=== PATIENT | male | born 1970 | race African-American/Black ===

== ENCOUNTER 2019-09-17 18:55 | Emergency (ER) | payer SELFPAY ==
--- NOTE | 2019-09-17 19:38 | ER Document Report ---
ED Medical Screen (RME) - General Chief Complaint: Hand Pain Stated Complaint: HAND PAIN, LEG CRAMPS Time Seen by Provider: 09/17/19 19:36 Mode of Arrival: Ambulatory Information source: Patient Notes: 49-year-old male presents to ED for complaint of cramps to the ribs calves and hands. He states now he started to cramp all over. He is alert oriented respirations regular nonlabored speaking in full sentences. States he does smoke 4 cigarettes a day does not drink alcohol but does occasionally use marijuana. He states he does have a history of COPD. I have greeted and performed a rapid initial assessment of this patient. A comprehensive ED assessment and evaluation of the patient, analysis of test results and completion of medical decision making process will be conducted by an additional ED providers. - Related Data Allergies/Adverse Reactions: No Known Allergies Allergy (Unverified 09/17/19 19:02) Home Medications: "steroids". Albuterol. Chantix. Pepcid. flomax Past Medical History - Social History Chew tobacco use (# tins/day): No Frequency of alcohol use: None Drug Abuse: None Pulmonary Medical History: Reports: Hx COPD Physical Exam - Vital signs Vitals: Temp Pulse Resp BP Pulse Ox 98.8 F 111 H 18 136/94 H 95 09/17/19 19:00 09/17/19 19:00 09/17/19 19:00 09/17/19 19:00 09/17/19 19:00 Course - Vital Signs Vital signs: Temp Pulse Resp BP Pulse Ox 98.8 F 111 H 18 136/94 H 95 09/17/19 19:00 09/17/19 19:00 09/17/19 19:00 09/17/19 19:00 09/17/19 19:00
[2019-09-17 20:12] LABS: ABSOLUTE BASOPHILS # (AUTO) 0.1 10^3/uL (0.0-0.2); ABSOLUTE EOSINOPHILS # (AUTO) 0.2 10^3/uL (0.0-0.6); ABSOLUTE LYMPHOCYTES (AUTO) 2.3 10^3/uL (0.5-4.7); ABSOLUTE MONOCYTES (AUTO) 0.7 10^3/uL (0.1-1.4); BASOPHILS % (AUTO) 0.9 % (0-2); EOSINOPHILS % (AUTO) 1.5 % (0-6); HEMATOCRIT 45.5 % (37.9-51.0); HEMOGLOBIN 15.3 g/dL (13.5-17.0); LYMPHOCYTES % (AUTO) 18.7 % (13-45); MEAN CORPUSCULAR HEMOGLOBIN 30.6 pg (27.0-33.4); MEAN CORPUSCULAR HGB CONC 33.6 g/dL (32.0-36.0); MEAN CORPUSCULAR VOLUME 91 fl (80-97); MONOCYTES % (AUTO) 5.8 % (3-13); PLATELET COUNT 220 10^3/uL (150-450); RED CELL DISTRIBUTION WIDTH 14.1 % (11.5-14.0); SEGMENTED NEUTROPHILS % (AUTO) 73.1 % (42-78); TOTAL CELLS COUNTED % (AUTO) 100 %; WHITE BLOOD COUNT 12.3 10^3/uL (4.0-10.5)
[2019-09-17 20:20] LABS: APPEARANCE,URINE CLEAR; BILIRUBIN,URINE NEGATIVE (NEGATIVE); COLOR,URINE STRAW; GLUCOSE, URINE >=500 mg/dL (NEGATIVE); KETONES,URINE NEGATIVE (NEGATIVE); LEUKOCYTE ESTERASE,URINE NEGATIVE (NEGATIVE); NITRITE,URINE NEGATIVE (NEGATIVE); PROTEIN,URINE NEGATIVE (NEGATIVE); URINE SPECIFIC GRAVITY 1.024; UROBILINOGEN,URINE NEGATIVE mg/dL (<2.0)
[2019-09-17 20:28] LABS: ALBUMIN 4.8 g/dL (3.5-5.0); ALKALINE PHOSPHATASE 69 U/L (38-126); ANION GAP 9 (5-19); ASPARTATE AMINO TRANSFERASE 29 U/L (17-59); BILIRUBIN,TOTAL 0.6 mg/dL (0.2-1.3); BLOOD UREA NITROGEN 21 mg/dL (7-20); CALCIUM 10.7 mg/dL (8.4-10.2); CARBON DIOXIDE 30 mmol/L (22-30); CHLORIDE 96 mmol/L (98-107); CREATINE KINASE 400 U/L (55-170); GLUCOSE 312 mg/dL (75-110); PHOSPHORUS 4.7 mg/dL (2.5-4.5); POTASSIUM 5.8 mmol/L (3.6-5.0); TOTAL PROTEIN 7.6 g/dL (6.3-8.2)
[2019-09-17 20:34] LABS: URINE AMPHETAMINES SCREEN NEGATIVE; URINE BARBITURATES SCREEN NEGATIVE; URINE BENZODIAZEPINES SCREEN NEGATIVE; URINE COCAINE SCREEN NEGATIVE; URINE MARIJUANA (THC) SCREEN NEGATIVE; URINE METHADONE SCREEN NEGATIVE; URINE PHENCYCLIDINE SCREEN NEGATIVE
--- NOTE | 2019-09-17 20:40 | EKG REPORT ---
SEVERITY:- ABNORMAL ECG - SINUS RHYTHM ZITA, CONSIDER BIATRIAL ABNORMALITIES : Confirmed by: Papi Higuera MD 17-Sep-2019 20:39:16
[2019-09-17] MEDS ORDERED: NORMAL SALINE 1000 ML 1,000 ML IV ONE ×2 (20:57)
--- NOTE | 2019-09-17 21:01 | ER Document Report ---
ED General - General Chief Complaint: Hand Pain Stated Complaint: HAND PAIN, LEG CRAMPS Time Seen by Provider: 09/17/19 19:36 Primary Care Provider: JANETT KHOURY MD [Primary Care Provider] - Follow up as needed Mode of Arrival: Ambulatory Notes: Patient is a 49-year-old male that comes emergency department for chief complaint of muscle cramping. He states at first he noticed it in his calves and at the top of his abdomen, then he started noticing it in his hands, now he feels like he is intermittently cramping all over. Patient states he is completing steroids for COPD exacerbation, he took his last dose today. He denies shortness of breath, states this is resolved, he denies fever, cough, vomiting, abdominal pain, chest pain, diarrhea, focal numbness or weakness. He continues to smoke, occasionally uses marijuana, denies recreational drugs otherwise. He denies history of diabetes. - Related Data Allergies/Adverse Reactions: No Known Allergies Allergy (Unverified 09/17/19 19:02) Home Medications: "steroids". Albuterol. Chantix. Pepcid. flomax Past Medical History - General Information source: Patient - Social History Smoking Status: Current Every Day Smoker Chew tobacco use (# tins/day): No Frequency of alcohol use: None Drug Abuse: None Lives with: Family Family History: Reviewed & Not Pertinent Patient has homicidal ideation: No Pulmonary Medical History: Reports: Hx COPD - Immunizations Hx Diphtheria, Pertussis, Tetanus Vaccination: Yes Review of Systems - Review of Systems Constitutional: See HPI EENT: No symptoms reported Cardiovascular: No symptoms reported Respiratory: No symptoms reported Gastrointestinal: No symptoms reported Genitourinary: No symptoms reported Male Genitourinary: No symptoms reported Musculoskeletal: See HPI Skin: No symptoms reported Hematologic/Lymphatic: No symptoms reported Neurological/Psychological: No symptoms reported Physical Exam - Vital signs Vitals: Temp Pulse Resp BP Pulse Ox 98.8 F 111 H 18 136/94 H 95 09/17/19 19:00 09/17/19 19:00 09/17/19 19:00 09/17/19 19:00 09/17/19 19:00 - Notes Notes: GENERAL: Alert and interactive but appears somewhat uncomfortable and restless HEAD: Normocephalic, atraumatic. EYES: Pupils equal, round, and reactive to light. Extraocular movements intact. ENT: Oral mucosa very dry, tongue midline. Oropharynx unremarkable. Airway patent. NECK: Full range of motion. Supple. Trachea midline. No lymphadenopathy. LUNGS: Clear to auscultation bilaterally, no wheezes, rales, or rhonchi. No respiratory distress. Non-tender chest wall. HEART: Borderline tachycardic, normal rhythm, no murmur ABDOMEN: Soft, non-tender. Non-distended. EXTREMITIES: Moves all 4 extremities spontaneously. No edema, normal radial and dorsalis pedis pulses bilaterally. No cyanosis. BACK: no cervical, thoracic, lumbar midline tenderness. No saddle anesthesia, normal distal neurovascular exam. Moves all extremities in full range of motion. NEUROLOGICAL: Alert and oriented x3. Normal speech. Cranial nerves II through XII grossly intact. Strength 5/5 in all extremities. PSYCH: Normal affect, normal mood. SKIN: Warm, dry, normal turgor. No rashes or lesions noted. Course - Re-evaluation Re-evalutation: Patient appears slightly uncomfortable, he is complaining of essentially whole body cramping, he has very dry mucous membranes, he has mildly tachycardic. Starting on IV fluids. CBC shows mild leukocytosis, nonspecific. Chemistry shows elevated potassium at 5.8, elevated glucose at 312, anion gap is unremarkable. Kidney functioning unremarkable. Troponin negative, EKG unremarkable. Urinalysis concentrated. Patient is not a diabetic, however he is completing steroids. After approximately 1.5 L normal saline bolus chemistry was repeated. Now glucose is almost normal, potassium is in normal range at 4.2, on evaluation patient has no symptoms, he is smiling, he states he feels great, he is requesting to leave. Now that patient's hyperglycemia and electrolyte abnormality was treated he has no symptoms. Patient will be discharged for close primary care follow-up, discussed return precautions, patient states appreciation and agreement. Stable, asymptomatic, well-appearing at time of discharge. - Vital Signs Vital signs: Temp Pulse Resp BP Pulse Ox 97.9 F 63 18 143/83 H 97 09/18/19 00:37 09/18/19 00:37 09/17/19 19:00 09/18/19 00:37 09/18/19 00:37 - Laboratory Result Diagrams: 09/17/19 19:48 09/17/19 22:47 Laboratory results interpreted by me: 09/17/19 09/17/19 09/17/19 19:48 19:48 19:48 WBC 12.3 H RDW 14.1 H Absolute Neuts (auto) 9.0 H Sodium 134.8 L Potassium 5.8 H Chloride 96 L Anion Gap BUN 21 H Creatinine 1.26 H Glucose 312 H Calcium 10.7 H Phosphorus 4.7 H Magnesium 2.4 H Creatine Kinase 400 H Urine Glucose (UA) >=500 H Urine Blood SMALL H 09/17/19 22:47 WBC RDW Absolute Neuts (auto) Sodium 134.2 L Potassium Chloride Anion Gap 3 L BUN Creatinine Glucose 163 H Calcium 8.1 L Phosphorus Magnesium Creatine Kinase Urine Glucose (UA) Urine Blood - EKG Interpretation by Me Additional EKG results interpreted by me: EKG shows sinus rhythm at a rate of 92, normal axis, QTC of 391, no T wave inversions or ST segment changes in consecutive leads. Discharge - Discharge Clinical Impression: Muscle cramping, Dehydration, Hyperkalemia, Hyperglycemia Condition: Stable Disposition: HOME, SELF-CARE Additional Instructions: You have been evaluated and treated for your muscle cramping, dehydration, elevated potassium, and elevated blood sugar. Follow-up with primary care for additional management. Return for any concerning symptoms including returned or severe cramping, vom iting, fever, chest pain, passing out, or any other concerning symptoms. Forms: Return to Work Referrals: JANETT KHOURY MD [Primary Care Provider] - Follow up as needed
[2019-09-17 23:22] LABS: BLOOD UREA NITROGEN 20 mg/dL (7-20); CALCIUM 8.1 mg/dL (8.4-10.2); GLUCOSE 163 mg/dL (75-110)
[2019-09-17 23:28] LABS: CARBON DIOXIDE 26 mmol/L (22-30); CHLORIDE 105 mmol/L (98-107)
[2019-09-17 23:31] LABS: ANION GAP 3 (5-19); POTASSIUM 4.2 mmol/L (3.6-5.0)
[2019-09-18 00:40] VITALS: BP 143/83
== END 2019-09-18 00:40 | disposition home or self-care (01) ==
LOC: ER 18:55
DX: E86.0 Dehydration (principal); E87.5 Hyperkalemia; R25.2 Cramp and spasm; D72.829 Elevated white blood cell count, unspecified; R73.9 Hyperglycemia, unspecified; J44.1 Chronic obstructive pulmonary disease with (acute) exacerbation; F17.200 Nicotine dependence, unspecified, uncomplicated; Z79.899 Other long term (current) drug therapy
CPT/HCPCS: 93005; 99284; 96360; 96361; 36415; 82550; 83735; 84100; 85025; 80053; 81001; 84484; 80307; 93010; J7030